=== PATIENT | male | born 1950 ===

== ENCOUNTER → 2017-10-30 18:44 | Outpatient (REF) | payer MEDICARE, SELFPAY ==
[2017-10-30 18:56] LABS: Add Manual Diff / Slide Review NO; Basophils Percent Auto 0.3 % (0-2); Eosinophils Percent Auto 1.8 % (2-4); Hematocrit 42.9 % (41-53); Hemoglobin 14.6 g/dL (13.5-17.5); Lymphocytes Percent Auto 15.4 % (25-40); Monocytes Percent Auto 7.4 % (3-14); Neutrophils Absolute Auto 4700 /uL (3000-5900); Neutrophils Percent Auto 75.1 % (50-75); Platelet Count 201 X10^3/uL (150-400); Red Blood Cell Count 4.71 X10^6/uL (4.5-5.9); Red Cell Distribution Width 14.3 % (11.6-14.8); White Blood Cell Count 6.2 X10^3/uL (4.5-11.0)
[2017-10-30 19:51] LABS: Vitamin B12 > 1000 pg/mL (239-931)
== END ==
LOC: LAB 18:44
PROVIDERS: Visit Provider Family Medicine
DX: D64.9 Anemia, unspecified (principal)
CPT/HCPCS: 82607; 85025